=== PATIENT | female | born 1995 | race Caucasian/White ===

== ENCOUNTER 2017-10-17 00:01 | Inpatient (IN) | payer OTHER ==
[2017-10-17] MEDS ORDERED: LIDOCAINE HCL 50 ML VIAL PERI PRN (00:10)
[2017-10-17] MEDS ORDERED: OXYTOCIN/DEXTROSE 5%-WATER 30 UNITS/500 ML BAG IV ONE ×2 (00:10→09:12)
[2017-10-17] MEDS ORDERED: RINGER'S SOLUTION,LACTATED 1,000 ML IV ONE (00:10)
[2017-10-17] MEDS: DEXTROSE 5%-LACTATED RINGERS 1,000 ML IV PRN ×2 (00:14→04:55)
[2017-10-17] MEDS ORDERED: FLU VACC QS2017-18(6MOS UP)/PF 60 MCG/0.5 ML SYRINGE IM ONE ×2 (00:51→09:00)
[2017-10-17] MEDS ORDERED: BUPIVACAINE HCL/0.9 % NACL/PF 250 ML EP PRN (04:31)
[2017-10-17] MEDS ORDERED: ONDANSETRON HCL/PF 2 MG/ML VIAL IV PRN (04:31)
[2017-10-17] MEDS ORDERED: NALOXONE HCL 1 MG/1 ML SYRG IV PRN (04:31)
[2017-10-17] MEDS ORDERED: fentaNYL CITRATE/PF 50 MCG/ML AMPUL IT SCH (04:45)
--- NOTE | 2017-10-17 05:37 | OR ---
Anesthesia Procedure Note - Anesthesia Procedure Note Narrative: Vital Signs - Last Taken Temp 36 C L 10/17/17 04:58 Pulse 88 10/17/17 04:58 Resp 20 10/17/17 04:58 BP 105/64 10/17/17 04:58 Pulse Ox 97 10/17/17 04:58 10/17/17 05:36 ANESTHESIA PROCEDURE NOTE Date of Procedure: 10/17/2017 Time of procedure: 04 14. Performed by: Bossman Ro CRNA Portfolio Accountant: None. Preprocedure diagnosis: Active labor. Post procedure diagnosis: Same. Procedure: Insertion of labor epidural. Indications: The patient is a 22 -year-old multigravida female in active labor requesting labor epidural for pain management. Findings: See below. Details of the procedure: The patient was placed in a sitting position. Back was prepped with DuraPrep. Patient was then draped in a sterile fashion. Lidocaine 1% was infiltrated to the skin and subcutaneous tissues at the level of the L3 4 interspace. The epidural space was identified using a 18-gauge Tuohy needle with [id number] technique. 20 mcg fentanyl was given intrathecally using a 27 ga. spinal needle. Epidural catheter was inserted without difficulty. Negative test dose was elicited using 5 mL of 1.5% preservative-free lidocaine plus epinephrine 1 200,000. The epidural catheter was then taped and secured in place. EBL: Minimal. Fluids: N/A. Specimen: N/A. Post procedure condition: The patient tolerated the procedure well. No complications were noted. Thank you for this consultation. Rosen CRNA
--- NOTE | 2017-10-17 09:11 | OR ---
Operative Report - Dictated Report Narrative: Spontaneous vaginal delivery of viable male at 0844 on 10/17/2017 with Apgars 8 and 9, weighing 3606 g in ABBEY position. Cord clamping delayed approximately 1 minute Placenta delivered complete, intact, with three vessel cord Estimated blood loss: 100 mL Lacerations: Second-degree vaginal laceration (3 cm) repaired with 3-0 Vicryl Rapide
[2017-10-17] MEDS ORDERED: BISACODYL 10 MG SUPP.RECT RC PRN (09:12)
[2017-10-17] MEDS ORDERED: HYDROCORTISONE 30 APPL TUBE TP PRN (09:12)
[2017-10-17] MEDS ORDERED: BENZOCAINE/MENTHOL 81 SPRAY CAN TP PRN (09:12)
[2017-10-17] MEDS ORDERED: SENNOSIDES 8.6 MG TABLET PO PRN (09:12)
[2017-10-17] MEDS ORDERED: GLYCERIN/WITCH HAZEL LEAF 40 APPL BOX TP PRN (09:12)
[2017-10-17] MEDS ORDERED: oxyCODONE HCL/ACETAMINOPHEN 1 TAB TABLET PO PRN (09:12)
[2017-10-17] MEDS ORDERED: IBUPROFEN 800 MG TABLET PO PRN (09:12)
[2017-10-17] MEDS: DOCUSATE SODIUM 100 MG CAPSULE PO SCH (21:12)
--- NOTE | 2017-10-18 09:38 | PN ---
Subjective - Date and Time Seen Date: 10/18/17 Time: 09:37 Objective - Vitals Vitals: Last Vital Signs Temp 35.9 C L 10/18/17 07:45 Pulse 79 10/18/17 07:45 Resp 16 10/18/17 07:45 BP 98/59 10/18/17 07:45 Pulse Ox 97 10/18/17 07:45 Patient denies complaints. Lochia wnl Abdomen - soft, nontender Uterus - firm, at umbilicus - 1 No calf tenderness Impression: day #1 - s/p spontaneous vaginal delivery. Plan: Continue routine care Cauti Physician Documentation - Urinary Catheter Management Urethral (Oliva) Date of Insertion: 10/17/17 Time of Insertion: 05:15
[2017-10-18] MEDS: oxyCODONE HCL/ACETAMINOPHEN 1 TAB TABLET PO PRN ×2 (09:43→16:21)
[2017-10-18] MEDS: DOCUSATE SODIUM 100 MG CAPSULE PO SCH ×2 (09:44→22:24)
[2017-10-18] MEDS ORDERED: FLU VACC QS2017-18(6MOS UP)/PF 60 MCG/0.5 ML SYRINGE IM ONE (16:27)
[2017-10-19 07:30] VITALS: BP 110/73
[2017-10-19] MEDS ORDERED: PRENATAL VITS96/IRON FUM/FOLIC 1 TAB TABLET PO SCH (09:00)
--- NOTE | 2017-10-19 09:01 | PN ---
Subjective - Date and Time Seen Date: 10/19/17 Time: 08:59 Objective - Vitals Vitals: Last Vital Signs Temp 36.6 C 10/19/17 07:24 Pulse 84 10/19/17 07:24 Resp 18 10/19/17 07:24 BP 110/73 10/19/17 07:24 Pulse Ox 98 10/18/17 19:08 Patient denies complaints. Lochia wnl Abdomen - soft, nontender Uterus - firm, at umbilicus - 2 No calf tenderness Impression: day #2 - s/p spontaneous vaginal delivery. Plan: Routine discharge instructions Cauti Physician Documentation - Urinary Catheter Management Urethral (Oliva) Date of Insertion: 10/17/17 Time of Insertion: 05:15
[2017-10-19] MEDS: DOCUSATE SODIUM 100 MG CAPSULE PO SCH (09:08)
== END 2017-10-19 14:15 | disposition home or self-care (01) | DRG 775 ==
LOC: OB 00:01
PROVIDERS: ADMIT Obstetrics & Gynecology; ATTEND Obstetrics & Gynecology
PROC: 10E0XZZ Delivery of Products of Conception, External Approach (ICD-10-PCS; principal; 2017-10-17)
PROC: 0KQM0ZZ Repair Perineum Muscle, Open Approach (ICD-10-PCS; 2017-10-17)
PROC: 3E0P3VZ Introduction of Hormone into Female Reproductive, Percutaneous Approach (ICD-10-PCS; 2017-10-17)
PROC: 4A1HXCZ Monitoring of Products of Conception, Cardiac Rate, External Approach (ICD-10-PCS; 2017-10-17)
PROC: 00HU33Z Insertion of Infusion Device into Spinal Canal, Percutaneous Approach (ICD-10-PCS; 2017-10-17)
DX: O70.1 Second degree perineal laceration during delivery (principal); Z37.0 Single live birth; Z3A.39 39 weeks gestation of pregnancy; Z23 Encounter for immunization
CPT/HCPCS: 59025; 90686; G0008